=== PATIENT | female | born 1995 | race Caucasian/White ===

== ENCOUNTER → 2019-06-26 11:59 | Outpatient (CLI) | payer OTHER, SELFPAY ==
--- NOTE | 2019-06-26 12:44 | RAD_ITS ---
STUDY: X-RAY CHEST REASON FOR EXAM: Female, 23 years old. TECHNIQUE: Two view of the chest were performed COMPARISON: None. FINDINGS: There is an ill-defined right lower lung zone central perihilar density. The rest of the lungs are clear. There is no pneumothorax, pulmonary edema or pleural effusions. Cardiac size is normal. [ ] RAD/Chest PA and Lateral IMPRESSION: 1. Right lower lung opacity, possibly early pneumonia. Short-term confirmatory imaging is advised. Electronically Signed: Lisa Thompson, at 18:28 EDT Tel , Service support ,
[2019-06-30 12:07] LABS: Angiotensin Convert Enzyme 46 U/L (14-82)
[2019-07-01 14:37] LABS: HLA B27 Negative (.); Treponema palladium Ab (FTA) Non Reactive (Non Reactive)
== END ==
PROVIDERS: Family Provider Physician Assistant; PCP Physician Assistant; Visit Provider Physician Assistant
DX: J45.909 Unspecified asthma, uncomplicated (principal)
CPT/HCPCS: 36415; 71046; 81374; 82164; 86780